=== PATIENT | male | born 1950 | race Two or more races ===

== ENCOUNTER → 2022-10-08 | Outpatient (CLI) | payer OTHER | END | disposition home or self-care (01) | LOC: SONOGRAMA 10:10 | PROVIDERS: ATTEND Pathology Anatomic Pathology & Clinical Pathology | DX: D17.9 Benign lipomatous neoplasm, unspecified (principal); D17.22 Benign lipomatous neoplasm of skin and subcutaneous tissue of left arm ==

== ENCOUNTER 2022-12-10 05:40 | Day surgery (SDC) | payer OTHER ==
[~2022-12-10] VITALS: Ht 175.3 cm; Wt 93.0 kg
[~2022-12-10 05:40] MED LIST: CANDESARTAN CIL32 MG PO; ECOTRIN81 MG PO; EZETIMIBE-SIMV1 EAC1 PO; HYDROCHLOROTH12.5 MG PO; SYNTHROID125 MCG PO; ZESTRIL40 M1 PO
== END 2022-12-10 15:40 | disposition home or self-care (01) ==
LOC: CIR.AMB 05:40
PROVIDERS: ATTEND Specialist
DX: D17.22 Benign lipomatous neoplasm of skin and subcutaneous tissue of left arm (principal); D17.79 Benign lipomatous neoplasm of other sites; I10 Essential (primary) hypertension; E78.49 Other hyperlipidemia; Z87.891 Personal history of nicotine dependence; E03.9 Hypothyroidism, unspecified

== ENCOUNTER 2023-03-16 06:24 | Day surgery (SDC) | payer OTHER ==
[~2023-03-16] VITALS: Ht 175.3 cm; Wt 93.0 kg
[~2023-03-16 06:24] MED LIST changes: +CARDURA8 MG PO; +CARVEDILOL25 MG
== END 2023-03-16 16:55 | disposition home or self-care (01) ==
LOC: CIR.AMB 06:24
PROVIDERS: ATTEND Specialist
DX: D17.1 Benign lipomatous neoplasm of skin and subcutaneous tissue of trunk (principal); I10 Essential (primary) hypertension; Z20.822 Contact with and (suspected) exposure to COVID-19; E03.9 Hypothyroidism, unspecified